=== PATIENT | male | born 1940 | race Caucasian/White ===

== ENCOUNTER 2016-11-22 12:11 | Day surgery (SDC) | payer OTHER ==
[~2016-11-22] VITALS: Ht 177.8 cm; Wt 79.0 kg
[~2016-11-22 12:11] MED LIST: AMBIEN5 M1 PO; FLOMAX0.4 MG PO; GLIPIZIDE10 MG PO; MELATONIN1 MG PO; PERCOCET 5/31 TABLET PO; XANAX0.5 MG PO
[2016-11-22 13:02] LABS: POINT-OF-CARE METER ID UU13113696; POINT-OF-CARE USER ID HMLCJM07
== END 2016-11-22 16:00 | disposition home or self-care (01) ==
LOC: CATH 12:11
PROVIDERS: Internal Medicine Cardiovascular Disease
DX: Z45.010 Encounter for checking and testing of cardiac pacemaker pulse generator [battery] (principal); I44.2 Atrioventricular block, complete; I10 Essential (primary) hypertension; E11.9 Type 2 diabetes mellitus without complications; N40.0 Benign prostatic hyperplasia without lower urinary tract symptoms; G89.29 Other chronic pain; Z79.84 Long term (current) use of oral hypoglycemic drugs; I25.10 Atherosclerotic heart disease of native coronary artery without angina pectoris; F17.211 Nicotine dependence, cigarettes, in remission
CPT/HCPCS: 82948; C1785; J0690; J1200; J2250; J3010; S0020

== ENCOUNTER → 2017-07-29 | Outpatient (CLI) | payer MEDICARE, OTHER | END | disposition home or self-care (01) | LOC: CDC 15:52 | DX: Z01.810 Encounter for preprocedural cardiovascular examination (principal); Z95.0 Presence of cardiac pacemaker; R94.31 Abnormal electrocardiogram [ECG] [EKG] | CPT/HCPCS: 93000 ==

== ENCOUNTER 2017-10-02 14:40 | Inpatient (IN) | payer OTHER ==
[~2017-10-02] VITALS: Ht 180.3 cm; Wt 72.8 kg
[~2017-10-02 14:40] MED LIST changes: +OXYCODONE HCL5 MG PO; -PERCOCET 5/31 TABLET PO; +XANAX0.25 MG PO; -XANAX0.5 MG PO
[2017-10-02 15:30] LABS: BASOPHIL (%) 0.4 % (0-1); EOSINOPHIL (%) 1.3 % (0-5); EOSINOPHIL COUNT 0.1 K/uL (0-0.3); HEMATOCRIT 43.7 % (38.0-50.0); IMMATURE GRANULOCYTE (%) 0.3 % (0.0-0.7); LYMPHOCYTE (%) 22.8 % (15-42); LYMPHOCYTE COUNT 2.1 K/uL (1.0-2.8); MCH 31.6 PG (29.0-34.0); MCHC 34.3 G/DL (30.0-36.0); MONOCYTE COUNT 0.6 K/uL (0-0.8); NEUTROPHIL (%) 68.2 % (45-76); NEUTROPHIL COUNT 6.2 K/uL (1.8-6.4); PLATELET COUNT 175 K/uL (156-360); RBC DIS.WIDTH-CV 12.6 % (11.8-14.6); RBC DIS.WIDTH-SD 42.4 % (39-53); RED BLOOD COUNT 4.75 M/uL (4.00-5.50); WHITE BLOOD COUNT 9.1 K/uL (4.1-10.2)
[2017-10-02 15:35] LABS: ALBUMIN 3.9 g/dL (3.2-4.8); CHLORIDE 105 mEq/L (99-109); POTASSIUM 3.4 mEq/L (3.7-5.4); SODIUM 141 mEq/L (136-147)
[2017-10-02 15:37] LABS: GLUCOSE 114 mg/dL (70-99); TOTAL PROTEIN 6.9 g/dL (6.4-8.3)
[2017-10-02 15:39] LABS: TOTAL BILIRUBIN 0.7 mg/dL (0.0-1.0)
[2017-10-02 15:40] LABS: SERUM ETHYL ALCOHOL < 10 mg/dL
[2017-10-02 15:41] LABS: ALKALINE PHOSPHATASE 62 IU/L (3-129); CREATININE 0.9 mg/dL (0.6-1.3); GFR ESTIMATE (CALCULATED) > 59 mL/min/ (58.99-99999)
[2017-10-02 15:42] LABS: AST (GOT) 25 IU/L (2-34); UREA NITROGEN (BUN) 12 mg/dL (9-23)
[2017-10-02 15:44] LABS: ALT (GPT) 30 IU/L (3-49)
[2017-10-02 15:51] LABS: TROP-I INTERPRETATION NEGATIVE; TROPONIN-I 0.03 ng/mL (0.0-0.30)
[2017-10-02 16:15] LABS: HDL CHOLESTEROL 49 MG/DL (Desirable>=40); LDL CHOLESTEROL 107 mg/dL (Desirable<100); NON-HDL CHOLESTEROL 121 mg/dL (Desirable<160); TOTAL CHOLESTEROL 170 mg/dL (Desirable<200); TRIGLYCERIDES 71 MG/DL (Normal: <150)
[2017-10-02] MEDS ORDERED: AMARYL2 MG PO (18:07)
[2017-10-02 20:06] VITALS: BP 142/74
[2017-10-03 00:47] VITALS: BP 146/85
[2017-10-03 03:52] VITALS: BP 141/82
[2017-10-03 05:53] LABS: BASOPHIL (%) 0.7 % (0-1); BASOPHIL COUNT 0.1 K/uL (0-0.1); EOSINOPHIL (%) 1.7 % (0-5); EOSINOPHIL COUNT 0.2 K/uL (0-0.3); HEMATOCRIT 44.4 % (38.0-50.0); HEMOGLOBIN 14.9 G/DL (12.5-16.6); IMMATURE GRANULOCYTE (%) 0.5 % (0.0-0.7); LYMPHOCYTE (%) 21.2 % (15-42); LYMPHOCYTE COUNT 2.2 K/uL (1.0-2.8); MCH 30.7 PG (29.0-34.0); MCHC 33.6 G/DL (30.0-36.0); MCV 91.4 FL (86-99); MONOCYTE (%) 6.9 % (3-12); MONOCYTE COUNT 0.7 K/uL (0-0.8); NEUTROPHIL COUNT 7.2 K/uL (1.8-6.4); PLATELET COUNT 188 K/uL (156-360); RBC DIS.WIDTH-CV 12.5 % (11.8-14.6); RBC DIS.WIDTH-SD 41.5 % (39-53); RED BLOOD COUNT 4.86 M/uL (4.00-5.50); WHITE BLOOD COUNT 10.5 K/uL (4.1-10.2)
[2017-10-03 06:12] LABS: ALBUMIN 3.6 G/DL (3.2-4.8); ALKALINE PHOSPHATASE 58 IU/L (3-129); ALT (GPT) 22 IU/L (3-49); AST (GOT) 19 IU/L (2-34); CHLORIDE 100 MEQ/L (99-109); CREATININE 0.7 MG/DL (0.6-1.3); GFR ESTIMATE (CALCULATED) > 59 mL/min/ (58.99-99999); POTASSIUM 3.2 MEQ/L (3.7-5.4); SODIUM 135 MEQ/L (136-147); TOTAL BILIRUBIN 0.7 MG/DL (0.0-1.0); TOTAL PROTEIN 6.5 G/DL (6.4-8.3); UREA NITROGEN (BUN) 11 mg/dL (9-23)
[2017-10-03 06:25] LABS: GLUCOSE 175 mg/dL (70-99)
[2017-10-03 07:45] VITALS: BP 137/79
[2017-10-03 10:53] LABS: HEMOGLOBIN A1c (GLYCOHEMOGLOB) 7.6 % (Below 5.7)
[2017-10-03 11:29] VITALS: BP 145/75
[2017-10-03 15:30] VITALS: BP 151/93
[2017-10-04 01:56] VITALS: BP 161/86
[2017-10-04 07:25] VITALS: BP 139/83
[2017-10-04 11:41] VITALS: BP 161/78
[2017-10-04 15:17] VITALS: BP 142/93
[2017-10-04 21:00] VITALS: BP 132/75
[2017-10-05 05:31] LABS: BASOPHIL (%) 0.7 % (0-1); BASOPHIL COUNT 0.1 K/uL (0-0.1); EOSINOPHIL (%) 2.9 % (0-5); EOSINOPHIL COUNT 0.2 K/uL (0-0.3); HEMATOCRIT 40.6 % (38.0-50.0); HEMOGLOBIN 13.7 G/DL (12.5-16.6); IMMATURE GRANULOCYTE (%) 0.3 % (0.0-0.7); LYMPHOCYTE (%) 20.9 % (15-42); LYMPHOCYTE COUNT 1.5 K/uL (1.0-2.8); MCH 30.9 PG (29.0-34.0); MCHC 33.7 G/DL (30.0-36.0); MCV 91.6 FL (86-99); MONOCYTE (%) 8.2 % (3-12); MONOCYTE COUNT 0.6 K/uL (0-0.8); NEUTROPHIL COUNT 4.9 K/uL (1.8-6.4); PLATELET COUNT 168 K/uL (156-360); RBC DIS.WIDTH-CV 12.7 % (11.8-14.6); RBC DIS.WIDTH-SD 42.5 % (39-53); RED BLOOD COUNT 4.43 M/uL (4.00-5.50); WHITE BLOOD COUNT 7.3 K/uL (4.1-10.2)
[2017-10-05 05:58] VITALS: BP 136/74
[2017-10-05 06:37] LABS: CHLORIDE 107 MEQ/L (99-109); CREATININE 0.7 MG/DL (0.6-1.3); GFR ESTIMATE (CALCULATED) > 59 mL/min/ (58.99-99999); GLUCOSE 198 mg/dL (70-99); UREA NITROGEN (BUN) 10 mg/dL (9-23)
[2017-10-05 06:40] LABS: SODIUM 142 MEQ/L (136-147)
[2017-10-05 09:09] VITALS: BP 155/74
[2017-10-05 11:16] VITALS: BP 145/80
[2017-10-05 15:13] VITALS: BP 164/87
[2017-10-05 19:18] VITALS: BP 133/77
[2017-10-06 00:24] VITALS: BP 158/86
[2017-10-06 08:00] VITALS: BP 153/87
[2017-10-06 11:49] VITALS: BP 134/69
[2017-10-06 15:18] VITALS: BP 144/75
[2017-10-06 19:46] VITALS: BP 133/67
[2017-10-06 23:26] VITALS: BP 144/86
[2017-10-07 05:17] VITALS: BP 130/80
[2017-10-07 05:26] LABS: BASOPHIL (%) 1.1 % (0-1); BASOPHIL COUNT 0.1 K/uL (0-0.1); EOSINOPHIL (%) 3.2 % (0-5); EOSINOPHIL COUNT 0.2 K/uL (0-0.3); HEMATOCRIT 44.3 % (38.0-50.0); HEMOGLOBIN 14.6 G/DL (12.5-16.6); IMMATURE GRANULOCYTE (%) 0.3 % (0.0-0.7); LYMPHOCYTE (%) 27.3 % (15-42); MCH 30.7 PG (29.0-34.0); MCV 93.1 FL (86-99); MONOCYTE (%) 8.3 % (3-12); MONOCYTE COUNT 0.6 K/uL (0-0.8); NEUTROPHIL (%) 59.8 % (45-76); NEUTROPHIL COUNT 4.3 K/uL (1.8-6.4); PLATELET COUNT 170 K/uL (156-360); RBC DIS.WIDTH-CV 12.5 % (11.8-14.6); RBC DIS.WIDTH-SD 43.4 % (39-53); RED BLOOD COUNT 4.76 M/uL (4.00-5.50); WHITE BLOOD COUNT 7.1 K/uL (4.1-10.2)
[2017-10-07 06:02] LABS: CHLORIDE 104 MEQ/L (99-109); CREATININE 0.8 MG/DL (0.6-1.3); GFR ESTIMATE (CALCULATED) > 59 mL/min/ (58.99-99999); GLUCOSE 236 mg/dL (70-99); SODIUM 137 MEQ/L (136-147); UREA NITROGEN (BUN) 19 mg/dL (9-23)
[2017-10-07 06:06] LABS: POTASSIUM 5.1 MEQ/L (3.7-5.4)
[2017-10-07 08:30] VITALS: BP 123/71
[2017-10-07 12:12] VITALS: BP 127/87
[2017-10-07 23:50] VITALS: BP 125/78
[2017-10-08 04:00] VITALS: BP 130/78
[2017-10-08 07:05] VITALS: BP 150/85
[2017-10-08 11:59] VITALS: BP 143/80
[2017-10-08 15:40] VITALS: BP 132/72
[2017-10-08 17:40] VITALS: BP 119/69
[2017-10-08 19:18] VITALS: BP 119/69
[2017-10-09 01:20] VITALS: BP 140/80
[2017-10-09 08:43] VITALS: BP 144/84
[2017-10-09 11:28] VITALS: BP 142/76
[2017-10-09 15:13] VITALS: BP 139/87
[2017-10-09 19:16] VITALS: BP 154/70
[2017-10-09 23:56] VITALS: BP 127/82
[2017-10-10 03:59] VITALS: BP 144/72
[2017-10-10 05:14] LABS: CHLORIDE 106 mEq/L (99-109); POTASSIUM 5.1 mEq/L (3.7-5.4); SODIUM 139 mEq/L (136-147)
[2017-10-10 05:15] LABS: GLUCOSE 250 mg/dL (70-99)
[2017-10-10 05:19] LABS: GFR ESTIMATE (CALCULATED) > 59 mL/min/ (58.99-99999)
[2017-10-10 05:20] LABS: UREA NITROGEN (BUN) 19 mg/dL (9-23)
[2017-10-10 05:32] LABS: BASOPHIL (%) 0.9 % (0-1); BASOPHIL COUNT 0.1 K/uL (0-0.1); EOSINOPHIL (%) 2.5 % (0-5); EOSINOPHIL COUNT 0.2 K/uL (0-0.3); HEMATOCRIT 39.3 % (38.0-50.0); HEMOGLOBIN 13.3 G/DL (12.5-16.6); IMMATURE GRANULOCYTE (%) 0.6 % (0.0-0.7); LYMPHOCYTE COUNT 1.4 K/uL (1.0-2.8); MCH 31.4 PG (29.0-34.0); MCHC 33.8 G/DL (30.0-36.0); MCV 92.7 FL (86-99); MONOCYTE COUNT 0.5 K/uL (0-0.8); NEUTROPHIL COUNT 4.4 K/uL (1.8-6.4); RBC DIS.WIDTH-CV 12.6 % (11.8-14.6); RBC DIS.WIDTH-SD 42.9 % (39-53); RED BLOOD COUNT 4.24 M/uL (4.00-5.50); WHITE BLOOD COUNT 6.5 K/uL (4.1-10.2)
[2017-10-10 05:50] LABS: PLAT.SUFFICIENCY DECREASED; PLATELET COUNT 131 K/uL (156-360)
[2017-10-10 07:43] VITALS: BP 148/80
[2017-10-10 12:10] VITALS: BP 157/82
[2017-10-10 15:00] VITALS: BP 152/76
[2017-10-10 19:25] VITALS: BP 149/69; BP 149/78
[2017-10-11 00:03] VITALS: BP 139/77; BP 140/67
[2017-10-11 07:45] VITALS: BP 139/85
[2017-10-11 12:08] VITALS: BP 141/74
[2017-10-11 15:39] VITALS: BP 156/76
[2017-10-11 19:12] VITALS: BP 157/76
[2017-10-11 23:44] VITALS: BP 119/71
[2017-10-12 07:20] VITALS: BP 189/83
[2017-10-12 11:26] VITALS: BP 148/88
[2017-10-12 19:30] VITALS: BP 114/60
[2017-10-13 05:05] VITALS: BP 142/93
[2017-10-13 07:16] VITALS: BP 151/85
[2017-10-13 11:30] VITALS: BP 139/73
[2017-10-13 17:03] VITALS: BP 150/80
[2017-10-13 19:30] VITALS: BP 139/80
[2017-10-14 04:00] VITALS: BP 136/78
[2017-10-14 08:40] VITALS: BP 139/75
[2017-10-14 11:39] VITALS: BP 194/99
[2017-10-14 16:13] VITALS: BP 158/81
[2017-10-14 19:45] VITALS: BP 140/75
[2017-10-14 23:49] VITALS: BP 129/73
[2017-10-15 08:24] VITALS: BP 152/89
[2017-10-15 16:31] VITALS: BP 147/87
[2017-10-15] MEDS ORDERED: FOLIC ACID1 MG PO (18:27)
[2017-10-15] MEDS ORDERED: GLIPIZIDE5 MG PO (18:27)
[2017-10-15] MEDS ORDERED: Thiamine,Vitamin B1 PO (18:27)
== END 2017-10-15 20:45 | disposition home health service (06) | DRG 897 ==
LOC: EME 14:40 → EDOF 17:10 → 4SOUTH 17:10 → EDOF 17:10 → ENRESERV 17:30 → 4SOUTH 19:38 → ENRESERV 10-11 11:13 → CANRESERV 10-11 11:13 → 4SOUTH 10-15 20:45
PROVIDERS: Emergency Medicine; Internal Medicine
DX: F10.27 Alcohol dependence with alcohol-induced persisting dementia (principal); E87.6 Hypokalemia; I10 Essential (primary) hypertension; G47.00 Insomnia, unspecified; F41.9 Anxiety disorder, unspecified; E78.5 Hyperlipidemia, unspecified; E11.9 Type 2 diabetes mellitus without complications; I25.10 Atherosclerotic heart disease of native coronary artery without angina pectoris; K21.9 Gastro-esophageal reflux disease without esophagitis; M19.90 Unspecified osteoarthritis, unspecified site; M51.36 Other intervertebral disc degeneration, lumbar region; Z91.040 Latex allergy status; Z87.891 Personal history of nicotine dependence; Z95.0 Presence of cardiac pacemaker; Z86.19 Personal history of other infectious and parasitic diseases
CPT/HCPCS: 70450; 71046; 80048; 80053; 80061; 81003; 82140; 82607; 83036; 84484; 85025; 93005; 95819; 99281; 99285; G0378; G0480; G8978 GP CH; G8979 GP CH; G8980 GP CH; J1644; J7030